=== PATIENT | male | born 1965 | race Caucasian/White ===

== ENCOUNTER 2016-10-04 07:09 | Inpatient (IN) | payer SELFPAY ==
[~2016-10-04] VITALS: Ht 175.3 cm; Wt 57.3 kg
[2016-10-04] VITALS (7 sets, daily range): BP systolic 101–126; BP diastolic 60–82; PULSE 77–91; RESP 18–20; TEMP 97.7–98.3; O2SAT 98–100
--- NOTE | 2016-10-04 08:11 | PD ---
HPI Chief Complaint: Suicide Ideation/Attempt Time Seen by Provider: 07:58 Travel History International Travel<30 days: No Contact w/Intl Traveler<30days: No Traveled to known affect area: No History of Present Illness HPI 51yo M with PMH of depression, PTSD, chronic back pain presents to the ED with c /o auditory hallucination for 2-3 months that is telling him to hurt others and himself. Also sees shadows but putting on sunglasses and closing his eyes helps. Pt has been off his psych medication for 1 month now and has not had a chance to follow up with his psychiatrist who is far away. Also complaining of mild epigastric abdominal pain with some NBNB vomiting and nonbloody diarrhea for 6 hours. States he thinks he has food poisoning. Denies any fever, chest pain, sob, urinary complaints. PFSH Past Medical History ADHD: Yes Bipolar Disorder: Yes Anxiety: Yes Depression: Yes Schizophrenia: Yes Tetanus Vaccination: Unknown Influenza Vaccination: No ?: Not Past Surgical History Oral Surgery: Yes (JAW) Social History Alcohol Use: No Tobacco Use: Yes Substance Use: No (HEROIN, DILAUDID, COCAINE, MARIJUANA, METH. LAST USED YESTERDAY) Allergies-Medications (Allergen,Severity, Reaction): Coded Allergies: Tramadol (Verified Allergy, Mild, 10/04/16) Reported Meds & Prescriptions Reported Meds & Active Scripts Active No Active Prescriptions or Reported Medications Review of Systems Except as stated in HPI: all other systems reviewed are Neg Physical Exam Narrative GENERAL: 51yo M not in distress. SKIN: Warm and dry. HEAD: Atraumatic. Normocephalic. EYES: Pupils equal and round. No scleral icterus. No injection or drainage. NECK: Trachea midline. No JVD. CARDIOVASCULAR: Regular rate and rhythm. No murmur appreciated. RESPIRATORY: No accessory muscle use. Clear to auscultation. Breath sounds equal bilaterally. GASTROINTESTINAL: Abdomen soft, mild epigastric ttp. No rebound tenderness or guarding. MUSCULOSKELETAL: No obvious deformities. No clubbing. No cyanosis. No edema. NEUROLOGICAL: Awake and alert. No obvious cranial nerve deficits. Motor grossly within normal limits. Normal speech. PSYCHIATRIC: Ippropriate mood and affect; poor insight and judgment. Data Data Last Documented VS Vital Signs Date Time Temp Pulse Resp B/P Pulse Ox O2 Delivery O2 Flow Rate FiO2 3/3/17 19:02 78 18 126/73 98 Room Air 10/04/16 14:24 98.3 Orders Complete Blood Count With Diff (10/04/16 08:05) Comprehensive Metabolic Panel (10/04/16 08:05) Urinalysis - C+S If Indicated (10/04/16 08:05) Psych Screen (10/04/16 08:05) Drug Screen, Random Urine (10/04/16 08:05) Lipase (10/04/16 08:05) Ondansetron Odt (Zofran Odt) (10/04/16 08:15) Pantoprazole (Protonix) (10/04/16 08:15) Alcohol (Ethanol) (10/04/16 08:11) Diet Regular Basic (10/04/16 Dinner) Labs Laboratory Tests Test 10/04/16 08:15 White Blood Count 11.7 TH/MM3 Red Blood Count 4.96 MIL/MM3 Hemoglobin 16.1 GM/DL Hematocrit 46.6 % Mean Corpuscular Volume 94.0 FL Mean Corpuscular Hemoglobin 32.5 PG Mean Corpuscular Hemoglobin 34.6 % Concent Red Cell Distribution Width 13.7 % Platelet Count 296 TH/MM3 Mean Platelet Volume 8.0 FL Neutrophils (%) (Auto) 93.5 % Lymphocytes (%) (Auto) 2.9 % Monocytes (%) (Auto) 2.6 % Eosinophils (%) (Auto) 0.8 % Basophils (%) (Auto) 0.2 % Neutrophils # (Auto) 10.9 TH/MM3 Lymphocytes # (Auto) 0.3 TH/MM3 Monocytes # (Auto) 0.3 TH/MM3 Eosinophils # (Auto) 0.1 TH/MM3 Basophils # (Auto) 0.0 TH/MM3 CBC Comment DIFF FINAL Differential Comment Urine Color YELLOW Urine Turbidity CLEAR Urine pH 5.0 Urine Specific [place] 1.024 Urine Protein NEG mg/dL Urine Glucose (UA) NEG mg/dL Urine Ketones 10 mg/dL Urine Occult Blood NEG Urine Nitrite NEG Urine Bilirubin NEG Urine Urobilinogen LESS THAN 2.0 MG/DL Urine Leukocyte Esterase NEG Urine RBC 1 /hpf Urine WBC 1 /hpf Urine Mucus FEW /lpf Microscopic Urinalysis Comment CULT NOT INDICATED Sodium Level 135 MEQ/L Potassium Level 4.8 MEQ/L Chloride Level 100 MEQ/L Carbon Dioxide Level 28.5 MEQ/L Anion Gap 7 MEQ/L Blood Urea Nitrogen 22 MG/DL Creatinine 1.10 MG/DL Estimat Glomerular Filtration 71 ML/MIN Rate Random Glucose 102 MG/DL Calcium Level 8.6 MG/DL Total Bilirubin 0.6 MG/DL Aspartate Amino Transf 29 U/L (AST/SGOT) Alanine Aminotransferase 26 U/L (ALT/SGPT) Alkaline Phosphatase 79 U/L Total Protein 7.7 GM/DL Albumin 3.9 GM/DL Lipase 130 U/L Urine Opiates Screen NEG Urine Barbiturates Screen NEG Urine Amphetamines Screen NEG Urine Benzodiazepines Screen NEG Urine Cocaine Screen POS Urine Cannabinoids Screen POS Ethyl Alcohol Level LESS THAN 3 MG/DL MDM Medical Decision Making Medical Screen Exam Complete: Yes Emergency Medical Condition: Yes Differential Diagnosis Acute gastroenteritis vs. pancreatitis vs. colitis Psychosis Narrative Course 51yo M here with auditory hallucination and off his psych medication stating the voices are telling him to hurt others and himself. Pt also with some vomiting and diarrhea. Pt given zofran and pantoprazole. He was evaluated at bedside and states that he feels much better. Does not have any more abdominal pain. Abdomen is soft, NT/ND. No rebound tenderness or guarding. Pt has not vomited in the ED. Labs reviewed, WBC 11.7. Lipase normal. CMP unremarkable. Negative alcohol. Utox positive for cocaine and cannabinoids. UA showed no leukocyte. VS stable. Pt is medically clear for psych evaluation. Diagnosis Primary Impression: Auditory hallucination Scripts No Active Prescriptions or Reported Meds Obdulia Rothman DO Oct 04, 2016 08:10 Obdulia Rothman DO Oct 04, 2016 08:10
[2016-10-04] MEDS ORDERED: PANTOPRAZOLE SOD 40 MG DELAYED RELEASE TAB PO ONE (08:15)
[2016-10-04] MEDS ORDERED: ONDANSETRON ODT 4 MG TAB PO ONE (08:15)
[2016-10-04 08:32] LABS: AUTOMATED NEUTROPHIL # 10.9 TH/MM3 (1.8-7.7); BASOPHIL % 0.2 % (0.0-2.0); EOSINOPHIL # 0.1 TH/MM3 (0-0.4); EOSINOPHIL % 0.8 % (0.0-4.0); HEMATOCRIT 46.6 % (39.0-51.0); HEMO FLAGS DIFF FINAL; LYMPH % 2.9 % (9.0-44.0); LYMPHOCYTE # 0.3 TH/MM3 (1.0-4.8); MEAN CORPUSCULAR HEMOGLOBIN 32.5 PG (27.0-34.0); MEAN CORPUSCULAR HGB CONC 34.6 % (32.0-36.0); MONO % 2.6 % (0.0-8.0); NEUT % 93.5 % (16.0-70.0); PLATELET COUNT 296 TH/MM3 (150-450); RED BLOOD COUNT 4.96 MIL/MM3 (4.50-5.90); RED CELL DISTRIBUTION WIDTH 13.7 % (11.6-17.2); WHITE BLOOD COUNT 11.7 TH/MM3 (4.0-11.0)
[2016-10-04 08:36] LABS: BLOOD, URINE NEG (NEG); COMMENT (UR) CULT NOT INDICATED; CULTURE IF INDICATED CULT NOT INDICATED; GLUCOSE,URINE NEG (NEG); KETONE, URINE 10 mg/dL (NEG); MUCUS URINE FEW /lpf (OCC); NITRITE,URINE NEG (NEG); URINE COLOR YELLOW (YELLW/STRAW)
[2016-10-04 08:43] LABS: AMPHETAMINE, URINE NEG (NEG); BARBITURATES, URINE NEG (NEG); COCAINE, URINE POS (NEG)
[2016-10-04 09:08] LABS: ALKALINE PHOSPHATASE 79 U/L (45-117); ALT (GPT) 26 U/L (12-78); ANION GAP 7 MEQ/L (5-15); BICARBONATE 28.5 MEQ/L (21.0-32.0); BLOOD UREA NITROGEN 22 MG/DL (7-18); CHLORIDE 100 MEQ/L (98-107); GLOMERULAR FILTRATION RATE 71 ML/MIN (>89); SODIUM (NA) 135 MEQ/L (136-145); TOTAL BILIRUBIN ADULT 0.6 MG/DL (0.2-1.0)
[2016-10-04 09:09] LABS: AST (GOT) 29 U/L (15-37); POTASSIUM 4.8 MEQ/L (3.5-5.1)
[2016-10-05 02:15] VITALS: BP 116/71; PULSE 82; RESP 18; TEMP 97.1; O2SAT 97
[2016-10-05 06:12] VITALS: BP 144/73; PULSE 80; RESP 18; TEMP 97.8; O2SAT 99
[2016-10-05] MEDS ORDERED: hydrOXYzine HCL 50 MG TAB PO PRN (09:15)
[2016-10-05] MEDS ORDERED: ALUMINUM/MAGNESIUM/SIMETH 30 ML CUP PO PRN (09:15)
[2016-10-05] MEDS ORDERED: IBUPROFEN 600 MG TAB PO PRN (09:15)
[2016-10-05] MEDS ORDERED: MAGNESIUM HYDROXIDE SUSP 30 ML CUP PO PRN (09:15)
[2016-10-05] MEDS ORDERED: diphenhydrAMINE HCL 50 MG CAP PO PRN (09:15)
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
[2016-10-05 11:15] VITALS: BP 116/76; PULSE 81; RESP 18; TEMP 98; O2SAT 100
[2016-10-05] MEDS: ARIPiprazole 15 MG TAB PO SCH (11:49)
[2016-10-05 15:15] VITALS: BP 129/77; PULSE 75; RESP 19; TEMP 98.4; O2SAT 98
[2016-10-05 19:00] VITALS: BP 129/74; PULSE 75; RESP 19; TEMP 98.4
[2016-10-05] MEDS: MIRTAZAPINE 15 MG TAB PO SCH (20:53)
[2016-10-06 05:52] VITALS: BP 116/76; PULSE 81; RESP 18; TEMP 98.7; O2SAT 97
[2016-10-06 07:35] LABS: ANION GAP 11 MEQ/L (5-15); BLOOD UREA NITROGEN 20 MG/DL (7-18); CHLORIDE 100 MEQ/L (98-107); GLOMERULAR FILTRATION RATE 72 ML/MIN (>89); HDL CHOLESTEROL 52.9 MG/DL (40.0-60.0); LDL CHOLESTEROL 49 MG/DL (0-99); POTASSIUM 4.1 MEQ/L (3.5-5.1); SODIUM (NA) 139 MEQ/L (136-145)
[2016-10-06] MEDS: NICOTINE 21 MG/24 HR PATCH T-DERMAL SCH (09:00)
[2016-10-06] MEDS: ARIPiprazole 15 MG TAB PO SCH (09:22)
[2016-10-06] MEDS ORDERED: LOPERAMIDE HCL 2 MG CAP PO PRN (14:45)
[2016-10-06 16:12] VITALS: BP 126/83; PULSE 84; RESP 18; TEMP 98.2; O2SAT 98
[2016-10-06] MEDS: REMOVE OLD NICODERM (NICOTINE) PATCH TD SCH (20:25)
[2016-10-06] MEDS: MIRTAZAPINE 15 MG TAB PO SCH (20:25)
--- NOTE | 2016-10-06 22:34 | HHI.PYPN ---
Subjective Remarks Pt seen and discussed with staff. Pt reports mood is "terrible". He c/o of symptoms consistent with mild opiate withdrawal (diarrhea, abdominal cramps) but minimizes substance abuse. Decreased SI. No HI Objective Alert: Yes [place]: Person, Place, Date, Situation Mood: Other (irritable) Affect: Labile Memory Intact: Immediate, Recent, Remote Hallucinations: Other (none) Delusions: No Delusion Type: Other (none) Suicidal: Ideation (vague) Homicidal: Ideation (denies) Insight/Judgement poor Labs Test 10/06/16 06:22 Sodium Level 139 MEQ/L Potassium Level 4.1 MEQ/L Chloride Level 100 MEQ/L Carbon Dioxide Level 28.0 MEQ/L Anion Gap 11 MEQ/L Blood Urea Nitrogen 20 MG/DL Creatinine 1.09 MG/DL Estimat Glomerular Filtration 72 ML/MIN Rate Random Glucose 101 MG/DL Calcium Level 8.4 MG/DL Triglycerides Level 66 MG/DL Cholesterol Level 115 MG/DL LDL Cholesterol 49 MG/DL HDL Cholesterol 52.9 MG/DL Cholesterol/HDL Ratio 2.17 RATIO Vitals/IOs Vital Signs Date Time Temp Pulse Resp B/P Pulse Ox O2 Delivery O2 Flow Rate FiO2 10/06/16 16:12 98.2 84 18 126/83 98 10/05/16 06:12 Room Air Assessment & Plan Problem List: (1) Substance induced mood disorder ICD Code: F19.94 (2) Malingering ICD Code: Z76.5 Assessment & Plan Continue current tx plan. Estimated LOS: days Justification for Cont. Inpt. safety Request HC Surrog/Guard Advoc?: Annabella Leos MD Oct 06, 2016 22:34
[2016-10-07 06:35] VITALS: BP_SYST 106; BP_SYST 143; BP_DIAS 60; BP_DIAS 91; PULSE 66; PULSE 81; RESP 16; TEMP 97.7; TEMP 98.7; O2SAT 97
[2016-10-07 08:56] LABS: HEMOGLOBIN A1a 1.1 %; HEMOGLOBIN A1b 1.5 %; HEMOGLOBIN Ao 85.9 %; HEMOGLOBIN LA1C 2.1 %; HEMOGLOBIN P3 3.8 %
[2016-10-07] MEDS: NICOTINE 21 MG/24 HR PATCH T-DERMAL SCH (09:02)
[2016-10-07] MEDS: ARIPiprazole 15 MG TAB PO SCH (09:02)
[2016-10-07] MEDS: REMOVE OLD NICODERM (NICOTINE) PATCH TD SCH (09:02)
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
[2016-10-07] MEDS ORDERED: ARIP1TAB13 PO (10:55)
[2016-10-07] MEDS ORDERED: MIRTA15 PO (10:55)
== END 2016-10-07 13:40 | disposition home or self-care (01) | DRG 897 ==
LOC: NEPC 07:09 → NEDA 10-05 09:24 → H270 10-05 10:00
PROVIDERS: ADMIT Psychiatry & Neurology Psychiatry; ATTEND Psychiatry & Neurology Psychiatry
DX: F19.94 Other psychoactive substance use, unspecified with psychoactive substance-induced mood disorder (principal); F11.23 Opioid dependence with withdrawal; F32.9 Major depressive disorder, single episode, unspecified; Z76.5 Malingerer [conscious simulation]; F43.10 Post-traumatic stress disorder, unspecified; F41.9 Anxiety disorder, unspecified; G89.29 Other chronic pain; M54.9 Dorsalgia, unspecified; Z72.0 Tobacco use; F90.9 Attention-deficit hyperactivity disorder, unspecified type
CPT/HCPCS: 80048; 80053; 80061; 80307; 80320; 81001; 83036; 83690; 85025; 99284; Q0163

== ENCOUNTER 2016-12-30 13:41 | Emergency (ER) | payer SELFPAY ==
[~2016-12-30] VITALS: Ht 172.7 cm; Wt 62.0 kg
[~2016-12-30 13:41] MED LIST: ARIP1TAB13 PO; MIRTA15 PO
[2016-12-30 13:50] VITALS: BP 108/68; PULSE 75; RESP 17; TEMP 97.9; O2SAT 98
[2016-12-30] MEDS ORDERED: SODIUM CHLOR 0.9% 1000 ML INJ 1,000 ML IV ONE (14:00)
[2016-12-30] MEDS ORDERED: ADDE20 PO (14:07)
--- NOTE | 2016-12-30 14:21 | PD ---
HPI Chief Complaint: Dizziness Time Seen by Provider: 14:00 Travel History International Travel<30 days: No Contact w/Intl Traveler<30days: No Traveled to known affect area: No History of Present Illness HPI 51-year-old male presents emergency department with a reported syncopal after getting weak and dizzy while walking down the street. He has a history of polysubstance abuse, admits to multiple medications including opiates, stimulants, and psychiatric medications. Patient is somnolent, difficult to get a complete history from. Denies any recent illness or injury. No other complaints. History Past Medical History Narrative Medical Depression PTSD Chronic back pain Social History Alcohol Use: No (1 BEER DAILY ) Tobacco Use: Yes (/ PPD) Allergies-Medications (Allergen,Severity, Reaction): Coded Allergies: Tramadol (Verified Allergy, Mild, 10/04/16) Reported Meds & Prescriptions Reported Meds & Active Scripts Active Mirtazapine 15 Mg Tab 15 Mg PO HS Aripiprazole 15 Mg Tab 15 Mg PO DAILY Reported Adderall (Amphetamine-Dextroamphetamine) 20 Mg Tab 20 Mg PO TID Avoid late evening doses. Space doses at least 4 to 6 hours if more than once/day dosing. Review of Systems Except as stated in HPI: all other systems reviewed are Neg Physical Exam Narrative GENERAL: 51-year-old man, sleepy, arouses to voice, no acute distress. SKIN: Warm and dry. CARDIOVASCULAR: Warm and well perfused. RESPIRATORY: Normal rate and effort. MUSCULOSKELETAL: No edema. No swelling. No deformities. NEUROLOGICAL: Sleepy but easily arousable. No gross deficits. Data Data Last Documented VS Vital Signs Date Time Temp Pulse Resp B/P Pulse Ox O2 Delivery O2 Flow Rate FiO2 12/30/16 13:50 97.9 75 17 108/68 98 Orders Complete Blood Count With Diff (12/30/16 14:00) Comprehensive Metabolic Panel (12/30/16 14:00) Creatine Kinase (Cpk) (12/30/16 14:00) Electrocardiogram (12/30/16 ) Iv Access Insert/Monitor (12/30/16 14:00) Sodium Chlor 0.9% 1000 Ml Inj (Ns 1000 M (12/30/16 14:00) Labs Laboratory Tests Test 12/30/16 14:20 White Blood Count 5.7 TH/MM3 Red Blood Count 4.09 MIL/MM3 Hemoglobin 12.3 GM/DL Hematocrit 37.9 % Mean Corpuscular Volume 92.5 FL Mean Corpuscular Hemoglobin 30.0 PG Mean Corpuscular Hemoglobin 32.4 % Concent Red Cell Distribution Width 14.4 % Platelet Count 220 TH/MM3 Mean Platelet Volume 7.9 FL Neutrophils (%) (Auto) 46.9 % Lymphocytes (%) (Auto) 36.1 % Monocytes (%) (Auto) 7.7 % Eosinophils (%) (Auto) 7.8 % Basophils (%) (Auto) 1.5 % Neutrophils # (Auto) 2.7 TH/MM3 Lymphocytes # (Auto) 2.1 TH/MM3 Monocytes # (Auto) 0.4 TH/MM3 Eosinophils # (Auto) 0.4 TH/MM3 Basophils # (Auto) 0.1 TH/MM3 CBC Comment DIFF FINAL Differential Comment Sodium Level 142 MEQ/L Potassium Level 3.5 MEQ/L Chloride Level 110 MEQ/L Carbon Dioxide Level 24.2 MEQ/L Anion Gap 8 MEQ/L Blood Urea Nitrogen 15 MG/DL Creatinine 0.81 MG/DL Estimat Glomerular Filtration 101 ML/MIN Rate Random Glucose 100 MG/DL Calcium Level 7.6 MG/DL Total Bilirubin 0.2 MG/DL Aspartate Amino Transf 16 U/L (AST/SGOT) Alanine Aminotransferase 25 U/L (ALT/SGPT) Alkaline Phosphatase 50 U/L Total Creatine Kinase 218 U/L Total Protein 5.5 GM/DL Albumin 2.9 GM/DL [facility] Medical Decision Making Medical Screen Exam Complete: Yes Emergency Medical Condition: Yes Interpretation(s) My review of EKG: Normal sinus rhythm at a rate of 49, normal axis, normal intervals, no definite evidence of acute ischemia. LABS: CBC is remarkable for mild anemia. CMP is unremarkable. Mild hyperproteinemia. Differential Diagnosis Arrhythmia, dehydration, electrolyte abnormality, adverse effect of illicit or prescription drugs, other Narrative Course Medical decision making 51 year-old man presents to the emergency department after getting weak and lightheaded while walking, possible syncopal episode. He sleepy now appears to be under the influence of medications. We'll check labs, EKG, IV fluids, likely outpatient follow-up. Diagnosis Primary Impression: Weakness Additional Instructions: Drink plenty of fluids stay well-hydrated. Avoid alcohol. Return to the emergency department for any new or worsening symptoms. Disposition: 01 DISCHARGE HOME Condition: Stable Lucas Manjarrez MD December 30, 2016 14:21
[2016-12-30 14:43] LABS: AUTOMATED NEUTROPHIL # 2.7 TH/MM3 (1.8-7.7); BASOPHIL # 0.1 TH/MM3 (0-0.2); BASOPHIL % 1.5 % (0.0-2.0); EOSINOPHIL # 0.4 TH/MM3 (0-0.4); EOSINOPHIL % 7.8 % (0.0-4.0); HEMATOCRIT 37.9 % (39.0-51.0); HEMO FLAGS DIFF FINAL; LYMPH % 36.1 % (9.0-44.0); LYMPHOCYTE # 2.1 TH/MM3 (1.0-4.8); MEAN CELL VOLUME 92.5 FL (80.0-100.0); MEAN CORPUSCULAR HGB CONC 32.4 % (32.0-36.0); MONO % 7.7 % (0.0-8.0); NEUT % 46.9 % (16.0-70.0); PLATELET COUNT 220 TH/MM3 (150-450); RED BLOOD COUNT 4.09 MIL/MM3 (4.50-5.90); RED CELL DISTRIBUTION WIDTH 14.4 % (11.6-17.2); WHITE BLOOD COUNT 5.7 TH/MM3 (4.0-11.0)
[2016-12-30 15:17] LABS: ANION GAP 8 MEQ/L (5-15); AST (GOT) 16 U/L (15-37); BICARBONATE 24.2 MEQ/L (21.0-32.0); BLOOD UREA NITROGEN 15 MG/DL (7-18); CHLORIDE 110 MEQ/L (98-107); GLOMERULAR FILTRATION RATE 101 ML/MIN (>89); POTASSIUM 3.5 MEQ/L (3.5-5.1); SODIUM (NA) 142 MEQ/L (136-145)
[2016-12-30 15:20] LABS: ALKALINE PHOSPHATASE 50 U/L (45-117); ALT (GPT) 25 U/L (12-78); CREATINE KINASE 218 U/L (39-308); TOTAL BILIRUBIN ADULT 0.2 MG/DL (0.2-1.0)
--- NOTE | 2016-12-31 08:24 | EKG ---
Date Performed: 12/30/2016 Time Performed: 13:54:25 PTAGE: 51 years EKG: Sinus rhythm POSSIBLE INFERIOR MYOCARDIAL INFARCTION ABNORMAL ECG NO PREVIOUS TRACING DOCTOR: Charli Almazan Interpretating Date/Time 12/31/2016 08:23:51
== END 2016-12-30 16:22 | disposition home or self-care (01) ==
LOC: NEPC 13:41
DX: R53.1 Weakness (principal); R42 Dizziness and giddiness; R94.31 Abnormal electrocardiogram [ECG] [EKG]; F17.210 Nicotine dependence, cigarettes, uncomplicated
CPT/HCPCS: 80053; 82550; 85025; 93005; 99284; J7030

== ENCOUNTER 2017-04-30 22:09 | Emergency (ER) | payer SELFPAY ==
[~2017-04-30] VITALS: Ht 172.7 cm; Wt 62.0 kg
[~2017-04-30 22:09] MED LIST changes: +ADDE20 PO
[2017-04-30 22:11] VITALS: BP 137/82; PULSE 88; RESP 16; TEMP 97.9; O2SAT 99
[2017-04-30 23:11] VITALS: BP 128/74; PULSE 72; RESP 18; O2SAT 95
[2017-04-30] MEDS ORDERED: RESP: ALBUTEROL 2.5 MG/IPRATROPIUM 0.5 MG NEB (SCH) NEB ONE (23:30)
[2017-04-30] MEDS ORDERED: DEXAMETHASONE SOD PHOS 20 MG/5 ML VIAL IM ONE (23:30)
--- NOTE | 2017-04-30 23:30 | PD ---
HPI Chief Complaint: Cold / Flu Symptoms Time Seen by Provider: 23:24 Travel History International Travel<30 days: No Contact w/Intl Traveler<30days: No Traveled to known affect area: No History of Present Illness HPI 51-year-old male with history of chronic pain and opiate dependence, presents to emergency department for evaluation of cough and chest congestion worsening of last 2 weeks. Cough has now become productive of a thick yellow sputum in the patient states he has just felt weaker and more tired. Denies a chest pain. Denies any focal deficits weakness. He does continue to smoke at least a pack and a half tobacco cigarettes daily. He has no other symptoms to report. PFSH Past Medical History ADHD: Yes Bipolar Disorder: Yes Anxiety: Yes Depression: Yes Cancer: No Cardiovascular Problems: No Diminished Hearing: No Endocrine: No Genitourinary: No Immune Disorder: No Implanted Vascular Access Dvce: No Musculoskeletal: No Neurologic: No Psychiatric: Yes Reproductive: No Respiratory: No Schizophrenia: Yes Past Surgical History Abdominal Surgery: No AICD: No Arteriovenous Shunt: No Cardiac Surgery: No Ear Surgery: No Endocrine Surgery: No Eye Surgery: No Genitourinary Surgery: No Gynecologic Surgery: No Insulin Pump: No Oral Surgery: Yes (JAW) Pacemaker: No Thoracic Surgery: No Other Surgery: Yes Social History Alcohol Use: Yes (OCCASIONALLY) Tobacco Use: Yes (1/2 PPD) Substance Use: No Allergies-Medications (Allergen,Severity, Reaction): Coded Allergies: tramadol (Unverified Allergy, Mild, 04/30/17) Reported Meds & Prescriptions Reported Meds & Active Scripts Active Proair Hfa 8.5 GM Inh (Albuterol Sulfate) 90 Mcg/Act Aer 2 Puff INH Q4HR PRN 108 mcg/actuation Prednisone 50 Mg Tab 50 Mg PO DAILY 5 Days Zithromax Z-Harrison (Azithromycin) 250 Mg Dspk 250 Mg PO DIRECTED 500 MG (2 tabs) day 1, then 1 tab days 2-5. Mirtazapine 15 Mg Tab 15 Mg PO HS Aripiprazole 15 Mg Tab 15 Mg PO DAILY Reported Adderall (Amphetamine-Dextroamphetamine) 20 Mg Tab 20 Mg PO TID Avoid late evening doses. Space doses at least 4 to 6 hours if more than once/day dosing. Review of Systems Except as stated in HPI: all other systems reviewed are Neg Physical Exam Narrative GENERAL: Well-nourished, well-developed male patient in no acute distress SKIN: Focused skin assessment warm/dry. HEAD: Normocephalic. EYES: No scleral icterus. No injection or drainage. NECK: Supple, trachea midline. No JVD or lymphadenopathy. CARDIOVASCULAR: Regular rate and rhythm without murmurs, gallops, or rubs. RESPIRATORY: Breath sounds coarse throughout, diminished bases equal bilaterally. No accessory muscle use. GASTROINTESTINAL: Abdomen soft, non-tender, nondistended. MUSCULOSKELETAL: No cyanosis, or edema. BACK: Nontender without obvious deformity. No CVA tenderness. Data Data Last Documented VS Vital Signs Date Time Temp Pulse Resp B/P (MAP) Pulse Ox O2 Delivery O2 Flow Rate FiO2 05/01/17 01:29 04/30/17 23:47 96 21 04/30/17 23:11 72 18 Room Air 04/30/17 22:11 97.9 Orders Orders Chest, Single Ap (04/30/17 ) Albuterol-Ipratropium Neb (Duoneb Neb) (04/30/17 23:30) Dexamethasone Inj (Decadron Inj) (04/30/17 23:30) MDM Medical Decision Making Medical Screen Exam Complete: Yes Emergency Medical Condition: Yes Medical Record Reviewed: Yes Differential Diagnosis Pneumonia versus influenza versus bronchitis versus COPD Narrative Course 51-year-old male presents to emergency department for evaluation. Patient appears without distress. He is afebrile. Patient does have coarse breath sounds throughout. Chest x-ray is complete. Last Impressions Chest X-Ray 04/30/17 0000 Signed Impressions: Service Date/Time: Sunday, April 30, 2017 23:39 - CONCLUSION: 1. Subsegmental basilar air space disease bilaterally most characteristic of bronchopneumonia. No effusion. Flaco Cordero MD He is counseled on tobacco use. He'll be started on azithromycin and a short course of oral steroids. He agrees to return immediately with any acute worsening symptoms. Diagnosis Primary Impression: Community acquired pneumonia Qualified Codes: J18.9 - Pneumonia, unspecified organism Referrals: Primary Care Physician Patient Instructions: Community Acquired Pneumonia (ED), General Instructions Additional Instructions: Humidified air may help to alleviate symptoms Stop smoking tobacco cigarettes Follow-up with primary care provider Return immediately with any acute worsening symptoms Med/Other Pt SpecificInfo: Prescription(s) given Scripts Albuterol 8.5 GM Inh (Proair Hfa 8.5 GM Inh) 90 Mcg/Act Aer 2 PUFF INH Q4HR Y for SHORTNESS OF BREATH, #1 INHALER 0 Refills 108 mcg/actuation Prov: Eugenie Rubin 05/01/17 Prednisone (Prednisone) 50 Mg Tab 50 MG PO DAILY for 5 Days, #5 TAB 0 Refills Prov: Eugenie Rubin 05/01/17 Azithromycin (Zithromax Z-Harrison) 250 Mg Dspk 250 MG PO DIRECTED for Infection, #1 DSPK 0 Refills 500 MG (2 tabs) day 1, then 1 tab days 2-5. Prov: Eugenie Rubin 05/01/17 Disposition: 01 DISCHARGE HOME Condition: Stable Eugenie Rubin Apr 30, 2017 23:30
[2017-04-30 23:47] VITALS: O2SAT 96
--- NOTE | 2017-05-01 00:26 | RADRPT ---
EXAM DATE/TIME: 04/30/2017 23:39 [facility] COMPARISON: No previous studies available for comparison. INDICATIONS : Cough. MEDICAL HISTORY : None. SURGICAL HISTORY : None. ENCOUNTER: Initial ACUITY: 4 - 6 days PAIN SCORE: 2/10 LOCATION: Bilateral chest FINDINGS: A single view of the chest demonstrates subsegmental airspace disease at the lung bases. No effusion. No pneumothorax. Remote left sided rib fractures. CONCLUSION: 1. Subsegmental basilar air space disease bilaterally most characteristic of bronchopneumonia. No eff usion. Flaco Cordero MD on May 01, 2017 at 0:21 Board Certified Radiologist. This report was verified electronically.
[2017-05-01] MEDS ORDERED: ZITHTAB PO (00:57)
[2017-05-01] MEDS ORDERED: PRED50 PO (00:58)
[2017-05-01] MEDS ORDERED: ALBUAER3 INH (00:58)
== END 2017-05-01 01:29 | disposition home or self-care (01) ==
LOC: NEPD 22:09
DX: J18.9 Pneumonia, unspecified organism (principal); G89.29 Other chronic pain; F11.20 Opioid dependence, uncomplicated; F90.9 Attention-deficit hyperactivity disorder, unspecified type; F31.9 Bipolar disorder, unspecified; F41.9 Anxiety disorder, unspecified; F20.9 Schizophrenia, unspecified; F17.210 Nicotine dependence, cigarettes, uncomplicated
CPT/HCPCS: 71010; 94664; 96372; 99284; J1100

== ENCOUNTER 2017-07-11 10:31 | Emergency (ER) | payer SELFPAY ==
[~2017-07-11] VITALS: Ht 172.7 cm; Wt 61.5 kg
[~2017-07-11 10:31] MED LIST changes: +ALBUAER3 INH; +PRED50 PO; +ZITHTAB PO
[2017-07-11 10:32] VITALS: BP 118/68; PULSE 82; RESP 18; TEMP 98; O2SAT 99
--- NOTE | 2017-07-11 10:54 | PD ---
HPI Chief Complaint: Psychiatric Symptoms Time Seen by Provider: 10:42 Travel History International Travel<30 days: No Contact w/Intl Traveler<30days: No Traveled to known affect area: No History of Present Illness HPI Patient is a 52-year-old male with history of PTSD, schizophrenia currently taking Abilify, presents to emergency room for evaluation of depression with homicidal thoughts. Patient reports that he is supposed to be taking Abilify for symptoms, reports that he has not taken his medications for the past month and a half as he cannot afford his medications. Patient reports that he is hearing voices, reports that he has thoughts of hurting people on the streets as they are making him mad. Patient request to be seen by psychiatrist as he feels that he needs help for his psychiatric issues. Patient denies any suicidal ideations at this time. Denies use of drugs/alcohol. Patient contracts for safety at this time. Patient with no active suicidal or homicidal ideations PFSH Past Medical History ADHD: Yes Bipolar Disorder: Yes Anxiety: Yes Depression: Yes Cancer: No Cardiovascular Problems: No Diminished Hearing: No Endocrine: No Genitourinary: No Immune Disorder: No Implanted Vascular Access Dvce: No Musculoskeletal: Yes (neck fusion) Neurologic: No Psychiatric: Yes (PTSD) Reproductive: No Respiratory: No Immunizations Current: No Schizophrenia: Yes Tetanus Vaccination: Unknown Influenza Vaccination: No Past Surgical History Abdominal Surgery: No AICD: No Arteriovenous Shunt: No Cardiac Surgery: No Ear Surgery: No Endocrine Surgery: No Eye Surgery: No Genitourinary Surgery: No Gynecologic Surgery: No Insulin Pump: No Oral Surgery: Yes (JAW) Pacemaker: No Thoracic Surgery: No Other Surgery: Yes Social History Alcohol Use: Yes (OCCASIONALLY) Tobacco Use: Yes (1/2 PPD) Substance Use: Yes (meth, heroin) Allergies-Medications (Allergen,Severity, Reaction): Coded Allergies: tramadol (Unverified Allergy, Mild, 07/11/17) Reported Meds & Prescriptions Reported Meds & Active Scripts Active Proair Hfa 8.5 GM Inh (Albuterol Sulfate) 90 Mcg/Act Aer 2 Puff INH Q4HR PRN 108 mcg/actuation Prednisone 50 Mg Tab 50 Mg PO DAILY 5 Days Zithromax Z-Harrison (Azithromycin) 250 Mg Dspk 250 Mg PO DIRECTED 500 MG (2 tabs) day 1, then 1 tab days 2-5. Mirtazapine 15 Mg Tab 15 Mg PO HS Aripiprazole 15 Mg Tab 15 Mg PO DAILY Reported Adderall (Amphetamine-Dextroamphetamine) 20 Mg Tab 20 Mg PO TID Avoid late evening doses. Space doses at least 4 to 6 hours if more than once/day dosing. Review of Systems General / Constitutional: No: Fever Eyes: No: Visual changes HENT: No: Headaches Cardiovascular: No: Chest Pain or Discomfort Respiratory: No: Shortness of Breath Gastrointestinal: No: Abdominal Pain Genitourinary: No: Dysuria Musculoskeletal: No: Pain Skin: No Rash Neurologic: No: Weakness Psychiatric: Positive: Anxiety, Depression, Homicidal Ideation, No: Suicidal Ideations, Substance Abuse Endocrine: No: Polydipsia Hematologic/Lymphatic: No: Easy Bruising Physical Exam Narrative GENERAL: No acute distress, nontoxic SKIN: Focused skin assessment warm/dry. HEAD: Atraumatic. Normocephalic. EYES: Pupils equal and round. No scleral icterus. No injection or drainage. ENT: No nasal bleeding or discharge. Mucous membranes pink and moist. NECK: Trachea midline. No JVD. CARDIOVASCULAR: Regular rate and rhythm. No murmur appreciated. RESPIRATORY: No accessory muscle use. Clear to auscultation. Breath sounds equal bilaterally. GASTROINTESTINAL: Abdomen soft, non-tender, nondistended. Hepatic and splenic margins not palpable. MUSCULOSKELETAL: No obvious deformities. No clubbing. No cyanosis. No edema. NEUROLOGICAL: Awake and alert. No obvious cranial nerve deficits. Motor grossly within normal limits. Normal speech. PSYCHIATRIC:anxious mood and affect; -SI, +HI with no active plans Data Data Last Documented VS Vital Signs Date Time Temp Pulse Resp B/P (MAP) Pulse Ox O2 Delivery O2 Flow Rate FiO2 07/11/17 10:32 98.0 82 18 118/68 (85) 99 Room Air Orders Orders Complete Blood Count With Diff (07/11/17 10:42) Comprehensive Metabolic Panel (07/11/17 10:42) Psych Screen (07/11/17 10:42) Drug Screen, Random Urine (07/11/17 10:42) Alcohol (Ethanol) (07/11/17 10:42) Salicylates (Aspirin) (07/11/17 10:42) Tylenol (Acetaminophen) (07/11/17 10:42) MDM Medical Decision Making Medical Screen Exam Complete: Yes Emergency Medical Condition: Yes Medical Record Reviewed: Yes Interpretation(s) Vital Signs Date Time Temp Pulse Resp B/P (MAP) Pulse Ox O2 Delivery O2 Flow Rate FiO2 07/11/17 10:32 98.0 82 18 118/68 (85) 99 Room Air Differential Diagnosis PTSD, depression, hallucinations Narrative Course Patient contracts for safety at this time, no active SI or HI, psychiatric screening labs ordered, once resulted, will clear for psychiatric screening Jessy Betancourt DO Jul 11, 2017 10:54
[2017-07-11 11:14] LABS: AUTOMATED NEUTROPHIL # 3.1 TH/MM3 (1.8-7.7); BASOPHIL # 0.1 TH/MM3 (0-0.2); BASOPHIL % 1.1 % (0.0-2.0); EOSINOPHIL # 0.3 TH/MM3 (0-0.4); EOSINOPHIL % 4.6 % (0.0-4.0); HEMATOCRIT 41.7 % (39.0-51.0); HEMO FLAGS DIFF FINAL; LYMPH % 29.7 % (9.0-44.0); LYMPHOCYTE # 1.7 TH/MM3 (1.0-4.8); MEAN CORPUSCULAR HGB CONC 33.3 % (32.0-36.0); MONO % 11.6 % (0.0-8.0); PLATELET COUNT 280 TH/MM3 (150-450); RED BLOOD COUNT 4.49 MIL/MM3 (4.50-5.90); WHITE BLOOD COUNT 5.9 TH/MM3 (4.0-11.0)
[2017-07-11 13:21] LABS: ACETAMINOPHEN LESS THAN 2.0 MCG/ML (10.0-30.0); ALKALINE PHOSPHATASE 69 U/L (45-117); TOTAL BILIRUBIN ADULT 0.3 MG/DL (0.2-1.0)
[2017-07-11 13:35] LABS: ALT (GPT) 21 U/L (12-78); ANION GAP 5 MEQ/L (5-15); AST (GOT) 19 U/L (15-37); BICARBONATE 26.3 MEQ/L (21.0-32.0); BLOOD UREA NITROGEN 19 MG/DL (7-18); CHLORIDE 108 MEQ/L (98-107); GLOMERULAR FILTRATION RATE 87 ML/MIN (>89); POTASSIUM 4.5 MEQ/L (3.5-5.1); SODIUM (NA) 139 MEQ/L (136-145)
[2017-07-11 13:36] LABS: ALCOHOL LESS THAN 3 MG/DL (0-5)
[2017-07-11 14:02] VITALS: BP 123/83; PULSE 75; RESP 16; TEMP 97.3; O2SAT 100
[2017-07-11 14:50] VITALS: BP 141/84; PULSE 68; RESP 18
[2017-07-11 17:55] VITALS: BP 130/70; PULSE 73; RESP 18
[2017-07-11 22:00] VITALS: BP 138/74; PULSE 80; RESP 18; TEMP 99.3; O2SAT 99
[2017-07-12 03:17] VITALS: BP 134/72; PULSE 72; RESP 18
[2017-07-12 06:00] VITALS: BP 135/73; PULSE 63; RESP 16; TEMP 99.3; O2SAT 16; O2SAT 98
--- NOTE | 2017-07-12 10:45 | PD ---
Physical Exam Date Seen by Provider: Jul 12, 2017 Time Seen by Provider: 10:43 Narrative 52-year-old male previously evaluated for psychiatric evaluation. Patient was medically cleared. Patient has been evaluated by psychiatric services and felt to be stable for discharge with follow-up with [facility] C[facility]. Patient remains medically stable for discharge. Data Data Last Documented VS Vital Signs Date Time Temp Pulse Resp B/P (MAP) Pulse Ox O2 Delivery O2 Flow Rate FiO2 07/12/17 06:00 99.3 63 16 135/73 (93) 98 Room Air Orders Orders Complete Blood Count With Diff (07/11/17 10:42) Comprehensive Metabolic Panel (07/11/17 10:42) Psych Screen (07/11/17 10:42) Drug Screen, Random Urine (07/11/17 10:42) Alcohol (Ethanol) (07/11/17 10:42) Salicylates (Aspirin) (07/11/17 10:42) Tylenol (Acetaminophen) (07/11/17 10:42) Diet Regular Basic (07/11/17 Lunch) Diet Regular Basic (07/11/17 Dinner) Diet Regular Basic (07/12/17 Breakfast) Diet Regular Basic (07/12/17 Lunch) Labs Laboratory Tests Test 07/11/17 11:00 07/11/17 11:20 07/11/17 12:05 White Blood Count 5.9 TH/MM3 Red Blood Count 4.49 MIL/MM3 Hemoglobin 13.9 GM/DL Hematocrit 41.7 % Mean Corpuscular Volume 93.0 FL Mean Corpuscular Hemoglobin 31.0 PG Mean Corpuscular Hemoglobin Concent 33.3 % Red Cell Distribution Width 14.0 % Platelet Count 280 TH/MM3 Mean Platelet Volume 7.0 FL Neutrophils (%) (Auto) 53.0 % Lymphocytes (%) (Auto) 29.7 % Monocytes (%) (Auto) 11.6 % Eosinophils (%) (Auto) 4.6 % Basophils (%) (Auto) 1.1 % Neutrophils # (Auto) 3.1 TH/MM3 Lymphocytes # (Auto) 1.7 TH/MM3 Monocytes # (Auto) 0.7 TH/MM3 Eosinophils # (Auto) 0.3 TH/MM3 Basophils # (Auto) 0.1 TH/MM3 CBC Comment DIFF FINAL Differential Comment Urine Opiates Screen NEG Urine Barbiturates Screen NEG Urine Amphetamines Screen POS Urine Benzodiazepines Screen NEG Urine Cocaine Screen POS Urine Cannabinoids Screen NEG Blood Urea Nitrogen 19 MG/DL Creatinine 0.92 MG/DL Random Glucose 89 MG/DL Total Protein 6.2 GM/DL Albumin 3.1 GM/DL Calcium Level 8.6 MG/DL Alkaline Phosphatase 69 U/L Aspartate Amino Transf (AST/SGOT) 19 U/L Alanine Aminotransferase (ALT/SGPT) 21 U/L Total Bilirubin 0.3 MG/DL Sodium Level 139 MEQ/L Potassium Level 4.5 MEQ/L Chloride Level 108 MEQ/L Carbon Dioxide Level 26.3 MEQ/L Anion Gap 5 MEQ/L Estimat Glomerular Filtration Rate 87 ML/MIN Salicylates Level LESS THAN 1.7 MG/DL Acetaminophen Level LESS THAN 2.0 MCG/ML Ethyl Alcohol Level LESS THAN 3 MG/DL MDM Medical Record Reviewed: Yes Supervised Visit with ISELA: Yes Narrative Course 52-year-old male previously evaluated for psychiatric evaluation. Patient was medically cleared. Patient has been evaluated by psychiatric services and felt to be stable for discharge with follow-up with Wayne Cagle. Patient remains medically stable for discharge. [facility] Patient Instructions: General Instructions Departure Forms: Tests/Procedures Condition: Stable Feliciano Garcia Jul 12, 2017 10:45
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
[2017-07-12] MEDS ORDERED: ABIL10TA8 PO (11:04)
== END 2017-07-12 11:20 | disposition home or self-care (01) ==
LOC: NEPD 10:31 → NEPJ 07-12 11:20
DX: F34.81 Disruptive mood dysregulation disorder (principal); F43.10 Post-traumatic stress disorder, unspecified; F20.9 Schizophrenia, unspecified; F31.9 Bipolar disorder, unspecified; F90.9 Attention-deficit hyperactivity disorder, unspecified type; F17.200 Nicotine dependence, unspecified, uncomplicated; Z76.5 Malingerer [conscious simulation]; Z79.899 Other long term (current) drug therapy
CPT/HCPCS: 80053; 80307; 85025; 99285

== ENCOUNTER 2017-10-09 14:38 | Emergency (ER) | payer SELFPAY ==
[~2017-10-09 14:38] MED LIST changes: +ABIL10TA8 PO; -PRED50 PO; -ZITHTAB PO
[2017-10-09 14:47] VITALS: BP 129/58; PULSE 99; RESP 16; TEMP 97.9; O2SAT 97
--- NOTE | 2017-10-09 17:06 | PD ---
HPI Chief Complaint: Pain: Acute or Chronic Time Seen by Provider: 16:33 Travel History International Travel<30 days: No Contact w/Intl Traveler<30days: No Traveled to known affect area: No History of Present Illness HPI Patient comes emergency department complaining of bilateral foot pain ongoing for 6 months. Patient describes pain as burning-like in nature. Patient denies any known injury. Pain is worse with walking. Patient reports he thinks it may be secondary to him not taking as much Opana as he once was but is uncertain. Denies any fevers, numbness, tingling, or radiation of the pain. Not walking improves the pain. Denies any chest pain, shortness of breath, unintentional weight loss, or being evaluated for this previously. History Past Medical Histgory Hx Cancer: No Social History Alcohol Use: Yes (OCCASIONALLY) Tobacco Use: Yes (1/2 PPD) Allergies-Medications (Allergen,Severity, Reaction): Coded Allergies: tramadol (Unverified Allergy, Mild, 07/11/17) Reported Meds & Prescriptions Reported Meds & Active Scripts Active Abilify (Aripiprazole) 10 Mg Tab 10 Mg PO DAILY Proair Hfa 8.5 GM Inh (Albuterol Sulfate) 90 Mcg/Act Aer 2 Puff INH Q4HR PRN 108 mcg/actuation Mirtazapine 15 Mg Tab 15 Mg PO HS Aripiprazole 15 Mg Tab 15 Mg PO DAILY Reported Adderall (Amphetamine-Dextroamphetamine) 20 Mg Tab 20 Mg PO TID Avoid late evening doses. Space doses at least 4 to 6 hours if more than once/day dosing. Review of Systems Except as stated in HPI: all other systems reviewed are Neg Physical Exam Narrative GENERAL: Well-developed, well nourished, in no acute distress, and non-ill appearing. SKIN: Focused skin assessment warm and dry. No open wounds or lesions noted on bilateral feet. HEAD: Atraumatic. Normocephalic. EYES: Pupils equal and round. EOMI. No scleral icterus. No injection or drainage. ENT: No nasal bleeding or discharge. Mucous membranes pink and moist. NECK: Trachea midline. Supple. No nuclear rigidity. CARDIOVASCULAR: Dorsal pulses 2+, intact, and equal bilaterally. Capillary refill less than 2 seconds. RESPIRATORY: No accessory muscle use. No respiratory distress. MUSCULOSKELETAL: No obvious deformities. No clubbing. No cyanosis. No edema. Full range of motion. Ankle: Neagative anterior draw and Santizo test. Negative James's sign. No laxity noted with passive inversion and eversion of BL ankles. Negative squeeze test. Pulses equal BL distal to injury. Capillary refill less than 2 seconds distal to injury and equal BL. Sensation equal BL 1st web space. FROM of toes distal to injury and equal BL. NV intact distal to injury and equal BL. Dorsal pulses equal BL. Normal gait. NEUROLOGICAL: Awake and alert. No obvious cranial nerve deficits. Motor grossly within normal limits. Normal speech. PSYCHIATRIC: Appropriate mood and affect; insight and judgment normal. Data Data Last Documented VS Vital Signs Date Time Temp Pulse Resp B/P (MAP) Pulse Ox O2 Delivery O2 Flow Rate FiO2 10/09/17 14:47 97.9 99 16 129/58 (81) 97 MDM Medical Screen Exam Complete: Yes Emergency Medical Condition: No Narrative Course History and physical exam findings are not consistent with an emergent medical condition. He was given the option of receiving additional care, but has declined. Therefore the appropriate counseling recommendations were discussed with the patient and he was instructed to follow-up with his primary care physician as soon as possible for reevaluation. Patient was also informed of community resources from which he can obtain additional care. He is agreeable and verbalizes an understanding of the proposed plan. The patient states he will immediately return to the emergency department if his current complaints do not improve, new symptoms arise, or emergent condition develops. Patient ambulated out of the emergency department without difficulty. Primary Impression: Encounter for medical screening examination Disposition: EDGO-ED USE ONLY Condition: Stable Bobby Suh Oct 09, 2017 17:06
== END 2017-10-09 16:53 | disposition left against medical advice (07) ==
LOC: NEPK 14:38
DX: M25.572 Pain in left ankle and joints of left foot (principal); F17.200 Nicotine dependence, unspecified, uncomplicated; Z79.899 Other long term (current) drug therapy; Z88.5 Allergy status to narcotic agent
CPT/HCPCS: 99281

== ENCOUNTER 2017-12-01 04:35 | Emergency (ER) | payer SELFPAY ==
[~2017-12-01] VITALS: Ht 172.7 cm; Wt 63.6 kg
[2017-12-01 04:41] VITALS: BP 136/73; PULSE 92; RESP 16; TEMP 99.1; O2SAT 100
[2017-12-01] MEDS ORDERED: WELLTAB39 PO (04:49)
[2017-12-01] MEDS ORDERED: OPAN10TA19 PO (04:49)
--- NOTE | 2017-12-01 05:02 | PD ---
HPI Chief Complaint: Cold / Flu Symptoms Time Seen by Provider: 04:57 Travel History International Travel<30 days: No Contact w/Intl Traveler<30days: No Traveled to known affect area: No History of Present Illness HPI The patient is a 52 year old male who presents to the [facility] emergency department with a history of cough, congestion that began 24 hours ago. He has had a subjective fever and chills. He has ear pressure bilaterally, a sore throat, The patient denies any history of neck pain, chest pain, shortness of breath, abdominal pain, vomiting, diarrhea, urinary symptoms, or neurologic symptoms. PFSH Past Medical History Narrative Medical bipolar disorder, tobacco use. ADHD: Yes Bipolar Disorder: Yes Anxiety: Yes Depression: Yes Cancer: No Cardiovascular Problems: No Diminished Hearing: No Endocrine: No Genitourinary: No Immune Disorder: No Implanted Vascular Access Dvce: No Musculoskeletal: Yes (neck fusion) Neurologic: No Psychiatric: Yes (PTSD) Reproductive: No Respiratory: No Immunizations Current: No Schizophrenia: Yes Past Surgical History Narrative Surgical c4 c5 surgery, jaw surgery, Abdominal Surgery: No AICD: No Arteriovenous Shunt: No Cardiac Surgery: No Ear Surgery: No Endocrine Surgery: No Eye Surgery: No Genitourinary Surgery: No Gynecologic Surgery: No Insulin Pump: No Oral Surgery: Yes (JAW) Pacemaker: No Thoracic Surgery: No Other Surgery: Yes (c4c5 surgery.) Social History Alcohol Use: Yes (OCCASIONALLY) Tobacco Use: Yes (1/2 PPD) Substance Use: No Allergies-Medications (Allergen,Severity, Reaction): Coded Allergies: tramadol (Unverified Allergy, Mild, 12/01/17) Reported Meds & Prescriptions Reported Meds & Active Scripts Active Ibuprofen 400 Mg Tab 400 Mg PO Q8H PRN Guaifenesin ER (Guaifenesin) 600 Mg Tab.er.12h 1 Tab PO Q12HR PRN Aripiprazole 15 Mg Tab 15 Mg PO DAILY Reported Opana (Oxymorphone HCl) 10 Mg Tab 10 Mg PO Q6HR Wellbutrin Xl 24 HR (Bupropion HCl) 300 Mg Tab 300 Mg PO DAILY Adderall (Amphetamine-Dextroamphetamine) 20 Mg Tab 20 Mg PO TID Avoid late evening doses. Space doses at least 4 to 6 hours if more than once/day dosing. Review of Systems Except as stated in HPI: all other systems reviewed are Neg General / Constitutional: Positive: Fever Eyes: No: Visual changes HENT: Positive: Sore Throat, Rhinorrhea, Congestion, No: Headaches Cardiovascular: No: Chest Pain or Discomfort Respiratory: Positive: Cough, No: Shortness of Breath Gastrointestinal: No: Abdominal Pain Genitourinary: No: Dysuria Musculoskeletal: No: Pain Skin: No Rash Neurologic: No: Weakness Psychiatric: No: Depression Endocrine: No: Polydipsia Hematologic/Lymphatic: No: Easy Bruising Physical Exam Narrative General: The patient is a well-developed well-nourished male in no acute distress. Head and Neck exam: Head is normocephalic atraumatic. Eyes: EOMI, pupils are equal round and reactive to light. Nose: Midline septum with erythematous edematous nasal mucosa and clear to white nasal discharge. Mouth: Dentition unremarkable. Moist mucus membranes. Posterior oropharynx is mildly erythematous without tonsillar hypertrophy, no exudates or palatal petechiae. Uvula midline. Airway patent. Neck: No palpable lymphadenopathy. No nuchal rigidity. No thyromegaly. Cardiovascular: Regular rate and rhythm without murmurs, gallops, or rubs. Lungs: Clear to auscultation bilaterally. No wheezes, rhonchi, or rales. Abdomen: Soft, without tenderness to palpation in all 4 quadrants of the abdomen. No guarding, rebound, or rigidity. Normal bowel sounds are audible. No tenderness on palpation of McBurney's point Extremities: No clubbing, cyanosis, or edema. 2+ pulses in all 4 extremities. No calf tenderness on palpation. Back: No spinous process tenderness to palpation. No costovertebral angle tenderness to palpation. Neurologic Exam: Grossly nonfocal. Skin Exam: No rash noted. Intact skin that is warm and dry. Data Data Last Documented VS Vital Signs Date Time Temp Pulse Resp B/P (MAP) Pulse Ox O2 Delivery O2 Flow Rate FiO2 12/01/17 08:03 12/01/17 07:49 98 18 99 Room Air 12/01/17 04:41 99.1 Orders Orders Influenzae A/B Antigen (12/01/17 05:03) Chest, Single Ap (12/01/17 05:03) Group A Rapid Strep Screen (12/01/17 05:08) Ibuprofen Liq (Motrin Liq) (12/01/17 05:15) Strep Culture (Group A) (12/01/17 05:15) Ed Discharge Order (12/01/17 07:45) [facility] Medical Decision Making Medical Screen Exam Complete: Yes Emergency Medical Condition: Yes Medical Record Reviewed: Yes Differential Diagnosis Viral upper respiratory infection, versus strep pharyngitis, versus influenza Narrative Course During the course of the patient's emergency department visit, the patient's history, examination, and differential diagnosis were reviewed with the patient. The patient was placed on a front desk agent with oximetry and frequent blood pressure monitoring. The patient had influenza testing done, a rapid strep test sent for analysis. The patient was initially provided Motrin for pain. The patient's laboratory studies were reviewed and remarkable for influenza testing that is negative, rapid strep test that is negative. The patient was instructed that his symptoms are likely related to a viral upper respiratory infection. He was instructed regarding symptom control measures. He was instructed that antibiotic would not be indicated as it would not treat a viral illness. The patient was given a prescription for ibuprofen and guaifenesin at discharge The patient is resting comfortably and feels better, is alert and in no distress. The patient's results and examination findings were discussed with the patient. The repeat examination is unremarkable and benign. The history, exam, diagnostic testing, and current condition do not suggest any significant pathology to warrant further testing, continued ED treatment, admission, or surgical evaluation at this point. The vital signs have been stable. The patient does not have uncontrollable pain, intractable vomiting, or other significant symptoms. The patient's condition is stable and appropriate for discharge. The patient will pursue further outpatient evaluation with a primary care physician or other designated or consulting physician as indicated in the discharge instructions. The patient expressed understanding and was agreeable with this plan. Diagnosis Primary Impression: Upper respiratory infection Qualified Codes: J06.9 - Acute upper respiratory infection, unspecified Referrals: Primary Care Physician 3 days Patient Instructions: General Instructions, Upper Respiratory Infection (ED) Med/Other Pt SpecificInfo: Prescription(s) given Scripts Ibuprofen (Ibuprofen) 400 Mg Tab 400 MG PO Q8H Y for PAIN SCALE 5 TO 10, #12 TAB 0 Refills Prov: Pattie Carl MD 12/01/17 Guaifenesin (Guaifenesin ER) 600 Mg Tab.er.12h 1 TAB PO Q12HR Y for NASAL CONGESTION, #12 Prov: Pattie Carl MD 12/01/17 Disposition: 01 DISCHARGE HOME Condition: Stable Pattie Carl MD Dec 01, 2017 05:02
[2017-12-01] MEDS ORDERED: IBUPROFEN SUSP 100 MG/5 ML UDC PO ONE (05:15)
--- NOTE | 2017-12-01 05:46 | RADRPT ---
EXAM DATE/TIME: 12/01/2017 05:17 [place] COMPARISON: CHEST SINGLE AP, April 30, 2017, 23:39. INDICATIONS : Sore throat, shortness of breath and congestion. MEDICAL HISTORY : None. SURGICAL HISTORY : Neck fusion. ENCOUNTER: Initial ACUITY: 2 days PAIN SCORE: 3/10 LOCATION: Bilateral chest FINDINGS: A single view of the chest demonstrates the lungs to be symmetrically aerated without evidence of mas s, infiltrate or effusion. The cardiomediastinal contours are unremarkable. Osseous structures are intact. CONCLUSION: No acute cardiopulmonary process. Tristan Beckford MD on December 01, 2017 at 5:43 Board Certified Radiologist. This report was verified electronically.
[2017-12-01] MEDS ORDERED: GUAI600T34 PO (06:45)
[2017-12-01] MEDS ORDERED: IBUP1TAB5 PO (06:46)
[2017-12-01 07:49] VITALS: BP 134/80; PULSE 98; RESP 18; O2SAT 99
== END 2017-12-01 08:04 | disposition home or self-care (01) ==
LOC: NEPC 04:35
DX: J06.9 Acute upper respiratory infection, unspecified (principal); F31.9 Bipolar disorder, unspecified; F90.9 Attention-deficit hyperactivity disorder, unspecified type; F43.10 Post-traumatic stress disorder, unspecified; F20.9 Schizophrenia, unspecified; F17.200 Nicotine dependence, unspecified, uncomplicated
CPT/HCPCS: 71045; 87081; 87804; 87880; 99284

== ENCOUNTER 2018-01-17 13:46 | Emergency (ER) | payer OTHER ==
[~2018-01-17] VITALS: Ht 172.7 cm; Wt 58.0 kg
[~2018-01-17 13:46] MED LIST changes: -ABIL10TA8 PO; -ALBUAER3 INH; +GUAI600T34 PO; +IBUP1TAB5 PO; -MIRTA15 PO; +OPAN10TA19 PO; +WELLTAB39 PO
[2018-01-17 14:08] VITALS: BP 141/81; PULSE 106; RESP 16; TEMP 98.9; O2SAT 100
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
== END 2018-01-17 15:25 | disposition home or self-care (01) ==
LOC: NEPD 13:46
DX: S16.1XXA Strain of muscle, fascia and tendon at neck level, initial encounter (principal); S39.012A Strain of muscle, fascia and tendon of lower back, initial encounter; R51 Headache; F90.9 Attention-deficit hyperactivity disorder, unspecified type; F31.9 Bipolar disorder, unspecified; F41.9 Anxiety disorder, unspecified; F43.10 Post-traumatic stress disorder, unspecified; F20.9 Schizophrenia, unspecified; F17.200 Nicotine dependence, unspecified, uncomplicated; V49.50XA Passenger injured in collision with unspecified motor vehicles in traffic accident, initial encounter; Z88.5 Allergy status to narcotic agent; Z79.899 Other long term (current) drug therapy
CPT/HCPCS: 99282